=== PATIENT | male | born 1955 | race Caucasian/White ===

== ENCOUNTER 2017-02-28 00:31 | Emergency (ER) | END 2017-02-28 05:06 | disposition home or self-care (01) | DX: R50.9 Fever, unspecified (principal); N23 Unspecified renal colic; N28.9 Disorder of kidney and ureter, unspecified; I10 Essential (primary) hypertension; E11.9 Type 2 diabetes mellitus without complications; Z79.84 Long term (current) use of oral hypoglycemic drugs | CPT/HCPCS: 36415; 71010; 74176; 80053; 81003; 83605; 84484; 85025; 85610; 85730; 87040; 87086; 93005; 96365; 96375; J1885; J2543; J7030; Z7502 ==

== ENCOUNTER 2018-10-12 14:28 | Emergency (ER) | payer MEDICARE, OTHER ==
[~2018-10-12] VITALS: Wt 113.8 kg
[~2018-10-12 14:28] MED LIST: CIPR500T4 PO; HYDR-4011 PO; METF-480 PO; NAPR-688 PO; ONDA4TAB11 PO
[2018-10-12] MEDS ORDERED: KETOROLAC 30 MG INJ IM STA (18:17)
[2018-10-12] MEDS ORDERED: ACETAMINOPHEN 500 MG TAB PO STA (18:17)
[2018-10-12] MEDS ORDERED: morphine 2 MG INJ IM STA (20:13)
--- NOTE | 2018-10-12 20:22 | ERD ---
ER Documentation Chief Complaint Chief Complaint meghan leg pain x several days; denies injury/fall HPI History of Present Illness: Patient coming in today with complaint of bilateral feet pain for 3 days. Patient denies any injury, falls, traumatic events. Past medical history includes hypertension and diabetes. Patient denies any other associated symptoms. Pain pain is described as burning,, nonradiating, severity 7 of 10. Patient reports pain worse at night or after long events of walking. At home pharmacological/nonpharmacological treatment for symptoms: Rest, elevation; reports mild relief of pain. Social History: Patient denies tobacco, alcohol, elicit drug use Allergies: NKDA Social Concerns: Denies ROS All systems reviewed and are negative except as per history of present illness. Medications Home Meds Active Scripts Tramadol HCl (Tramadol HCl) 50 Mg Tablet, 50 MG PO Q6 PRN for PAIN, #15 TAB Prov:JAMSHID WHITNEY V E D TECH 10/12/18 Ciprofloxacin Hcl* (Ciprofloxacin Hcl*) 500 Mg Tablet, 500 MG PO BID for 3 Days, TAB Prov:LEAH CORNELIUS DO 02/28/17 Ondansetron (Zofran Odt) 4 Mg Tab.rapdis, 4 MG PO Q6 for NAUSEA, #10 Prov:LEAH CORNELIUS DO 02/28/17 Naproxen* (Naproxen*) 500 Mg Tablet, 500 MG PO BID PRN for pian, #20 TAB Prov:LEAH CORNELIUS DO 02/28/17 Hydrocodone/Acetaminophen ([place] 5-325 Tablet) 1 Each Tablet, 1 EACH PO Q6, #20 TAB Prov:LEAH CORNELIUS DO 02/28/17 Reported Medications Metformin* (Glucophage*) 850 Mg Tablet, 850 MG PO TID, TAB 11/19/14 Allergies Allergies: Coded Allergies: No Known Allergy (Unverified , 11/19/14) PMhx/Soc Medical and Surgical Hx: pt denies Surgical Hx History of Surgery: No Anesthesia Reaction: No Hx Neurological Disorder: No Hx Respiratory Disorders: No Hx Cardiac Disorders: Yes (HTN) Hx Psychiatric Problems: No Hx Miscellaneous Medical Probl: Yes (DM) Hx Alcohol Use: No Hx Substance Use: No Hx Tobacco Use: No Smoking Status: Never smoker FmHx Family History: diabetes Physical Exam Vitals Vital Signs Date Temp Pulse Resp B/P (MAP) Pulse Ox O2 O2 Flow FiO2 Time Delivery Rate 3/27/19 97.9 71 20 156/74 96 14:47 (101) Physical Exam Const: No acute distress, afebrile Head: Atraumatic Eyes: Normal Conjunctiva ENT: Normal External Ears, Nose and Mouth. Neck: Full range of motion. No meningismus. Resp: Clear to auscultation bilaterally Cardio: Regular rate and rhythm, no murmurs Abd: Soft, non tender, non distended. No guarding, no masses, no rigidity Skin: No petechiae or rashes Back: No midline or flank tenderness Ext: No cyanosis, or edema. 2+ pedal pulses. No erythema, swelling, cyanosis. Neurovascularly intact to bilateral feet. Neur: Awake and alert x3, speaking in clear sentences, no focal deficits or facial asymmetry Psych: Normal Mood and Affect Results 24 hrs Current Medications Medications Dose Sig/Brandon Start Time Status Last (Trade) Ordered Route PRN Stop Time Admin Dose Reason Admin Ketorolac 30 mg ONCE STAT 10/12/18 DC 10/12/18 Tromethamine IM 18:17 18:38 (Toradol) 10/12/18 18:21 1,000 mg ONCE STAT 10/12/18 DC 10/12/18 Acetaminophen PO 18:17 18:38 (Tylenol 10/12/18 18:21 Tab) Morphine 2 mg ONCE STAT 10/12/18 DC Sulfate IM 20:13 (morphine) 10/12/18 20:14 Tramadol 50 mg ONCE ONCE 10/12/18 DC HCl PO 20:30 (Ultram) 10/12/18 20:31 Procedures/MDM ED course includes a thorough examination and history. ED course includes medication; ketorolac and acetaminophen for pain. Low suspicion for life threatening medical emergency or orthopedic emergency that requires hospitalization. No clinical indications of infectious process or sepsis. Otherwise healthy patient presenting with constellation of symptoms likely representing uncomplicated bilateral feet pain, likely due to diabetes as characterized by history, physical exam finding. Neurovascular exam within normal limits, pain possibly due to venous stasis associated with age and diabetes as patient reporting decreased pain with elevation of feet; patient seems to be describing episodes of intermittent claudication. Reassessment at 2012: Patient reports no relief of pain with medications given during ER visit. Will give IM dose of 2mg morphine and tramadol before discharge. Stressed importance of follow-up care with primary care doctor for further evaluation. Patient and son verbalizes understanding. Questions answered. Disposition given. Stressed importance of elevation of her feet. No respiratory distress, otherwise relatively well appearing and nontoxic. Patient educated on diagnoses, prescriptions, follow-up care, return precautions. Strict return precautions given for worsening condition; questions answered discharge. Disposition for discharge with followup in 2 days with PCP/clinic. Departure Diagnosis: Primary Impression: Bilateral foot pain Additional Impression: Intermittent claudication Condition: Stable JAMSHID WHITNEY NP Oct 12, 2018 20:22
[2018-10-12] MEDS ORDERED: TRAM50TA2 PO (20:23)
[2018-10-12] MEDS ORDERED: traMADol 50 MG TAB PO ONE (20:30)
[2018-10-12 20:38] VITALS: BP 148/76; PULSE 70; RESP 16
== END 2018-10-12 20:38 | disposition home or self-care (01) ==
LOC: FTE 14:28
DX: M79.604 Pain in right leg (principal); I10 Essential (primary) hypertension; E11.9 Type 2 diabetes mellitus without complications; M79.605 Pain in left leg; I73.9 Peripheral vascular disease, unspecified; Z79.84 Long term (current) use of oral hypoglycemic drugs
CPT/HCPCS: 96372; 99284; J1885; J2270